=== PATIENT | male | born 2005 | race African-American/Black ===

== ENCOUNTER 2024-02-17 14:20 | Observation (INO) ==
[2024-02-17 15:46] LABS: Basophils # (auto) 0.06 K/uL (0.00-0.20); Basophils % (auto) 0.3 %; Hematocrit (blood only) 43.4 % (42.0-52.0); Hemoglobin 14.8 g/dl (14.0-18.0); Immature Granulocytes # (auto) 0.24 K/uL (0.01-0.20); Immature Granulocytes % (auto) 1.1 %; Lymphocytes % (auto) 7.2 %; Mean Corpuscular Hemoglobin 29.6 pg (25.0-34.0); Mean Corpuscular Hgb Conc 34.1 g/dL (32.0-36.0); Mean Corpuscular Volume 86.8 fL (80.0-100.0); Mean Platelet Volume 11.9 fL (9.4-12.4); Monocytes # (auto) 2.02 K/uL (0.11-0.59); Monocytes % (auto) 9.1 %; Neutrophils # (auto) 18.33 K/uL (1.40-6.50); Neutrophils % (auto) 82.3 %; Platelet Count 264 K/uL (130-400); RDW Coefficient of Variation 12.1 % (11.5-14.5); RDW Standard Deviation 38.7 fL (36.4-46.3); White Blood Count 22.25 K/ul (4.8-10.8)
[2024-02-17 16:01] LABS: Albumin Globulin Ratio 0.8 (0.9-2); BUN Creatinine Ratio 12.6 (10-20); Bilirubin,Total 0.7 mg/dl (0.2-1.0); Calcium 9.9 mg/dl (8.6-10.3); Creatinine Clr Calc Pharmacy 118.1 ml/min; Globulin 5.3 gm/dl (2.5-4.0); Potassium 4.4 mmol/L (3.5-5.1); Total Protein 9.3 gm/dl (6.0-8.3)
--- NOTE | 2024-02-17 16:22 | XRay Report ---
XR chest 1V not portable CLINICAL HISTORY: Chest congestion. COMPARISON STUDY: No previous studies for comparison. FINDINGS: Lung volumes are normal. Lungs are clear. There is no pneumothorax or pleural effusion. Car diac size is normal. Mediastinal contours are normal. There is no evidence for pulmonary edema. IMPRESSION: No acute cardiopulmonary findings. ACT 112: Negative or not required by law. Electronically signed by: Andrew Palma M.D. 02/17/2024 4:21 PM
[2024-02-17 16:24] LABS: Influenza A virus by PCR Negative (Neg); Influenza B virus by PCR Negative (Neg); RSV by PCR Negative (Neg); SARS CoV2 RNA(COVID-19) Ceph NEGATIVE (Negative)
[2024-02-17] MEDS: IBUPROFEN 600 MG TAB PO STA (16:47)
[2024-02-17] MEDS: OPTIRAY 320 100ml IV ONE (18:56)
--- NOTE | 2024-02-17 19:29 | CT Scan Report ---
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 TECHNIQUE: Axial computed tomography images of the neck with intravenous contrast. CTDI is 17.84 mGy and DLP is 402.99 mGy-cm. Automated exposure control was utilized for the study. A dose lowering technique was utilized adhering to the principles of ALARA. CONTRAST: Patient received 91 ml optiray 320 of IV contrast COMPARISON: No relevant prior studies available. FINDINGS: Nasopharynx: Enlarged adenoids. Oropharynx: Enlarged palatine tonsils consistent with tonsillitis. Left peritonsillar abscess measuring 2.4 x 4.0 x 5.3 cm. Hypopharynx: Unremarkable. Larynx: Unremarkable. Normal epiglottis. Trachea: Unremarkable. Retropharyngeal space: Unremarkable. Submandibular/parotid glands: Unremarkable. Glands are normal in size. Thyroid: Unremarkable. No enlarged or calcified nodules. Bones/joints: No acute fracture. Soft tissues: Unremarkable. Vasculature: No acute findings. Lymph nodes: Bilateral cervical chain lymphadenopathy, left greater than right. Lung apices: Unremarkable as visualized. IMPRESSION: 1. Left peritonsillar abscess measuring 2.4 x 4.0 x 5.3 cm. Background tonsillitis. 2. Enlarged adenoids. 3. Bilateral cervical chain lymphadenopathy, left greater than right. Electronically signed by: Ari Montejo M.D. 02/17/24 19:28 PM
[2024-02-17] MEDS: DEXAMETHASONE SOD INJ 4 MG/ML VIAL IV STA (21:36)
--- NOTE | 2024-02-17 21:53 | History & Physical Report ---
Date of Service February 17, 2024 Assessment & Plan (1) Peritonsillar abscess: Plan: 19 y/o male with no PMH here with peritonsillar abscess Admit to Med- Surg Leukocytosis (22.25) Soft tissue neck CT: Left peritonsillar abscess measuring 2.4x 4.0 x 5.3 cm ENT consulted, aprec recommendations: abscess was drained by Dr. Ureña today. - Continue IV Unasyn - IV Decadron 8mg - Culture sent - NPO CBC AM Plan FEN: NPO Code status: full code DVT ppx: low risk, SCDs, ambulation Dispo: med/surg History of Present Illness Primary Care Provider: [facility] Patient is a 19 y/o male with no known PMH here due to peritonsillar abscess. Patient states symptoms started 2 weeks ago with sore sore throat. He was seen in [facility] where he was diagnosed with mono. He completely a short course of steroids. Patient refers symptoms returned after a couple of days with worsening symptoms, sore throat and chills. Abscess was drained by Dr. Ureña in the emergency room. Pain had improved after drained and PO Ibuprofen, refers mild pain now. Denied any chest pain, SOB, palpitations, abdominal pain, nausea, vomiting or any other symptoms Allergies Allergy/AdvReac Type Severity Reaction Status Date / Time No Known Allergies Allergy Verified 02/17/24 21:35 Home Medications Medication Instructions Recorded Confirmed Type No Known Home Medications 02/17/24 02/17/24 History Past Med/Surg History Problem List (Updated 02/17/24 @ 22:46 by Sarkis Wilson MD) Peritonsillar abscess (Acute) Medical History No pertinent past medical history No pertinent family history Surgical History No pertinent past surgical history Social History Smoking Status: Never smoker Second Hand Exposure: No; Hx Alcohol Use: No Hx Substance Use: No Preferred Language: Pashto Communication Ability: Effective 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 Required: No Beliefs That Will Affect Care: None Current Living Situation: Other Current Living Situation Comment: 2 roomates Other Information That Helps Us Care for You: No Feels Safe at Home: Yes Safety Concerns: Feels Safe At This Time Assistive Devices: None Review of Systems Review of Systems: as per HPI Physical Exam Constitutional: WD/WN, vitals as above ENMT: Throat: + peritonsillar mass Respiratory: normal respiratory effort, lungs clear to auscultation Cardiovascular: RRR, no murmur, no edema Gastrointestinal (Abdomen): normal bowel sounds, soft, nontender, no he patosplenomegaly Results & Data Results & Data Vital Signs (Past 12 Hours) Vital Signs Temp Pulse Resp BP BP Pulse Ox O2 Del Method 02/17/24 20:34 83 02/17/24 20:00 68 20 98 02/17/24 20:00 107/62 02/17/24 20:00 107/62 02/17/24 20:00 107/62 02/17/24 20:00 107/62 02/17/24 18:34 84 02/17/24 18:18 36.8 C 12 120/78 96 Room Air 02/17/24 14:55 38.3 C H 80 18 136/101 H 98 Room Air Code Status & VTE Plan VTE Prophylaxis Plan VTE Prophylaxis will be ordered: Yes Supervising Physician Co-Signing Physician Notes Attending addendum: I have physically seen this patient, have supervised the medical residents activities, and agree with the H&P unless as otherwise noted. Assessment and Plan: Left peritonsillar abscess/associated tonsillitis- NPO CT soft tissue of the neck revealed a left peritonsillar abscess measuring 2.4 x 4.0 x 5.3 cm Patient was seen by ENT Dr. Ureña in the ED, who performed an I&D, with cultures sent Follow culture and sensitivity Empiric Unasyn 3 g IV every 6 hours IV Decadron 8 mg daily NSS at 125 mL/h x 1 L Follow serial CBC with differential Resident Activity Tracking Resident Involvement: Resident Care Provided Care Provided: Adult Hospital Medicine
[2024-02-17] MEDS: AMPICILLIN/SULBACTAM SOD 3,000 MG/100 ML BAG IV SCH (21:58)
--- NOTE | 2024-02-17 22:46 | Emergency Department Note ---
History of Present Illness General Chief Complaint: Illness Stated Complaint: MONO SYMPTOMS Time Seen by Provider: 02/17/24 17:38 History of Present Illness Provider Complaint: + sore throat Onset (ago): 3 day(s) Duration: + constant Maximum Pain Intensity: 7 Able to tolerate fluids by mouth: Yes Associated symptoms: + fever, + cough, + nausea and + vomiting HPI Narrative: Patient reports he was diagnosed with mono at [facility] 2 days ago. Home Medications Medication Instructions Recorded Confirmed Type No Known Home Medications 02/17/24 02/17/24 History Allergies Allergy/AdvReac Type Severity Reaction Status Date / Time No Known Allergies Allergy Verified 02/17/24 21:35 Past Med/Surg History Problem List (Updated 02/17/24 @ 22:46 by Sarkis Wilson MD) Peritonsillar abscess (Acute) Medical History No pertinent past medical history No pertinent family history Surgical History No pertinent past surgical history Social History Smoking Status: Never smoker Preferred Language: Taiwanese Feels Safe at Home: Yes Physical Exam 2 Vital Signs: Vital Signs - 24 hr 02/17/24 14:55 02/17/24 18:18 02/17/24 18:34 Temperature 38.3 C H 36.8 C Temperature Source Oral Temporal Artery Sc an Pulse Rate 80 84 Pulse Rate from Sp O2 Sensor Pulse Rhythm Regular Pulse Strength Normal Respiratory Rate 18 12 Respiratory Effort / Characteristics Non-Labored Sponta neous Respiratory Depth Normal Respiratory Patter n Regular Blood Pressure 136/101 H Blood Pressure [Ri ght Arm] 120/78 Blood Pressure Ana n 112 Blood Pressure Ana n [Right Arm] 92 Blood Pressure Pos ition Sitting Pulse Oximetry 98 96 Oxygen Delivery Me thod Room Air Room Air Sepsis Recent Feve r Within 48 Hours No Sepsis New/Unexpla ined Change in Men david Status N/A Sepsis Action Take n by Nursing No Action Required 02/17/24 20:00 02/17/24 20:00 02/17/24 20:00 Temperature Temperature Source Pulse Rate Pulse Rate from Sp O2 Sensor Pulse Rhythm Pulse Strength Respiratory Rate Respiratory Effort / Characteristics Respiratory Depth Respiratory Patter n Blood Pressure 107/62 107/62 107/62 Blood Pressure [Ri ght Arm] Blood Pressure Ana n 76 76 76 Blood Pressure Ana n [Right Arm] Blood Pressure Pos ition Pulse Oximetry Oxygen Delivery Me thod Sepsis Recent Feve r Within 48 Hours Sepsis New/Unexpla ined Change in Men david Status Sepsis Action Take n by Nursing 02/17/24 20:00 02/17/24 20:00 02/17/24 20:34 Temperature Temperature Source Pulse Rate 68 83 Pulse Rate from Sp O2 Sensor 71 Pulse Rhythm Pulse Strength Respiratory Rate 20 Respiratory Effort / Characteristics Respiratory Depth Respiratory Patter n Blood Pressure 107/62 Blood Pressure [Ri ght Arm] Blood Pressure Ana n 76 Blood Pressure Ana n [Right Arm] Blood Pressure Pos ition Pulse Oximetry 98 Oxygen Delivery Me thod Sepsis Recent Feve r Within 48 Hours Sepsis New/Unexpla ined Change in Men david Status Sepsis Action Take n by Nursing 02/17/24 20:57 02/17/24 21:01 02/17/24 21:12 Temperature Temperature Source Pulse Rate 72 80 Pulse Rate from Sp O2 Sensor 74 83 Pulse Rhythm Pulse Strength Respiratory Rate 19 17 Respiratory Effort / Characteristics Respiratory Depth Respiratory Patter n Blood Pressure 111/75 Blood Pressure [Ri ght Arm] Blood Pressure Ana n 87 Blood Pressure Ana n [Right Arm] Blood Pressure Pos ition Pulse Oximetry 98 97 Oxygen Delivery Me thod Sepsis Recent Feve r Within 48 Hours Sepsis New/Unexpla ined Change in Men david Status Sepsis Action Take n by Nursing 02/17/24 21:51 Temperature Temperature Source Pulse Rate 79 Pulse Rate from Sp O2 Sensor 83 Pulse Rhythm Pulse Strength Respiratory Rate 21 Respiratory Effort / Characteristics Respiratory Depth Respiratory Patter n Blood Pressure Blood Pressure [Ri ght Arm] Blood Pressure Ana n Blood Pressure Ana n [Right Arm] Blood Pressure Pos ition Pulse Oximetry 96 Oxygen Delivery Me thod Sepsis Recent Feve r Within 48 Hours Sepsis New/Unexpla ined Change in Men david Status Sepsis Action Take n by Nursing Physical Exam: Physical Exam GENERAL: He is oriented to person, place, and time. He appears well-developed and well-nourished. He does not appear distressed. HENT: Exam performed. - Head: Normocephalic and atraumatic. - Right Ear: External ear normal. No mastoid erythema - Left Ear: External ear normal. No mastoid erythema - Mouth/Throat: Mild trismus. Moist mucous membranes. 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 There are some scant exudate over this area. Uvula pushed slightly to the right. EYES: Conjunctivae and EOM are normal. Pupils are equal, round, and reactive to light. Right eye exhibits no discharge. Left eye exhibits no discharge. No scleral icterus. NECK: Normal range of motion. Neck supple. No JVD present. CV: Normal rate, regular rhythm, normal heart sounds and intact distal pulses. There is no peripheral edema. Palpable radial pulses bue. PULM/CHEST: Effort normal and breath sounds normal. No respiratory distress. No stridor. He has no wheezes. He has no rales. LYMPH: Bilateral cervical adenopathy. NEURO: He is alert and oriented to person, place, and time. He has normal strength. No cranial nerve deficit or sensory deficit. Coordination and gait normal. GCS eye subscore is 4. GCS verbal subscore is 5. GCS motor subscore is 6. Cerebellar tests wnl. SKIN: Skin is warm and dry. He is not diaphoretic. PSYCH: He has a normal mood and affect. Behavior is normal. Judgment and thought content normal. Course Course 173: The patient was evaluated in room C SUBWAIT. A complete history and physical exam was performed Patient was seen during a time of extreme volume and extreme acuity in the emergency department. Nursing triage protocols were initiated and labs were drawn by protocol in the triage area. Patient does have white blood cell count of 22. Patient's physical exam is concerning for TOOL CRIB SUPERVISOR versus tonsillitis. Will obtain CT of the soft tissue neck. 2002: Patient does have a large TOOL CRIB SUPERVISOR on the left. Discussed with ENT Dr. Ureña who states he will be in to evaluate the patient. 2100: Vital signs stable. Dr. Ureña evaluated the patient at bedside and did a bedside I&D. He recommends IV Unasyn and admission to medicine. Decadron also ordered for the patient. Patient will be admitted to the hospital service. Administered Medications Ampicillin Sodium/Sulbactam Sodium (Unasyn) 3,000 mg in 100 mls @ 200 mls/hr IV Q6H YESSI Stop: 02/27/24 21:14 Last Infusion: 02/17/24 22:35 Dose: Infused Documented By: Admin: 02/17/24 21:58 Dose: 200 mls/hr Documented By: CLAUDIA Discontinued Medications Dexamethasone (Dexamethasone Sod Inj 4 Mg/Ml Vial) 8 mg IV NOW STA Stop: 02/17/24 21:05 Last Admin: 02/17/24 21:36 Dose: 8 mg Documented By: CLAUDIA Ibuprofen (Ibuprofen 600 Mg Tab) 600 mg PO NOW STA Stop: 02/17/24 15:03 Last Admin: 02/17/24 16:47 Dose: 600 mg Documented By: JOSEPH Ioversol (Optiray 320 100ml) 91 ml IV ONCE ONE Stop: 02/17/24 18:57 Last Admin: 02/17/24 18:56 Dose: 91 ml Documented By: NOEL Medical Decision Making Laboratory Data Attestation: I reviewed the patient's lab results. 02/17/24 15:25 02/17/24 15:25 Lab Results 02/17/24 02/17/24 02/17/24 Range/Units 15:25 18:01 18:30 WBC 22.25 H (4.8-10.8) K/ul RBC 5.00 (4.70-6.10) M/uL Hgb 14.8 (14.0-18.0) g/dl Hct 43.4 (42.0-52.0) % MCV 86.8 (80.0-100.0) fL MCH 29.6 (25.0-34.0) pg MCHC 34.1 (32.0-36.0) g/dL RDW Std Deviation 38.7 (36.4-46.3) fL RDW Coeff of Diana 12.1 (11.5-14.5) % Plt Count 264 (130-400) K/uL MPV 11.9 (9.4-12.4) fL Immature Gran % (Auto) 1.1 % Neut % (Auto) 82.3 % Lymph % (Auto) 7.2 % Angelina % (Auto) 9.1 % Eos % (Auto) 0.0 % Baso % (Auto) 0.3 % Neut # (Auto) 18.33 H (1.40-6.50) K/uL Lymph # (Auto) 1.60 (1.20-3.40) K/uL Angelina # (Auto) 2.02 H (0.11-0.59) K/uL Eos # (Auto) 0.00 (0.00-0.50) K/uL Baso # (Auto) 0.06 (0.00-0.20) K/uL Immature Gran # (Auto) 0.24 H (0.01-0.20) K/uL Sodium 134 L (136-145) mmol/L Potassium 4.4 (3.5-5.1) mmol/L Chloride 98 (98-107) mmol/L Carbon Dioxide 29 (21-32) mmol/L Anion Gap 7 (3-11) BUN 13 (6-23) mg/dl Creatinine 1.03 (0.6-1.4) mg/dl Est Cr Clr Drug Dosing 118.1 ml/min eGFR 106.65 BUN/Creatinine Ratio 12.6 (10-20) Glucose 129 H (70-99(Fasting)) mg/dl Calcium 9.9 (8.6-10.3) mg/dl Total Bilirubin 0.7 (0.2-1.0) mg/dl AST 21 (13-39) U/L ALT 19 (7-52) U/L Alkaline Phosphatase 109 H (34-104) U/L Total Protein 9.3 H (6.0-8.3) gm/dl Albumin 4.0 (3.4-5.0) gm/dl Globulin 5.3 H (2.5-4.0) gm/dl Albumin/Globulin Ratio 0.8 L (0.9-2) SARS-CoV-2 (PCR) NEGATIVE (Negative) Monoscreen Negative (Negative) Influenza Type A (PCR) Negative (Neg) Influenza Type B (PCR) Negative (Neg) RSV (RT-PCR) Negative (Neg) Group A Strep (PCR) NOT DETECTED (NotDetected) Imaging Data Attestation: I personally reviewed and interpreted this imaging study as follows: My Impression: Chest x-ray negative. Airway clear. No pneumothorax. No consolidation. No cardiomegaly or cephalization.. No free air under the diaphragm. No fractures of the skeletal structures. Radiologist's Impression: Chest X-Ray 02/17/24 15:01 XR chest 1V not portable CLINICAL HISTORY: Chest congestion. COMPARISON STUDY: No previous studies for comparison. FINDINGS: Lung volumes are normal. Lungs are clear. There is no pneumothorax or pleural effusion. Cardiac size is normal. Mediastinal contours are normal. There is no evidence for pulmonary edema. IMPRESSION: No acute cardiopulmonary findings. ACT 112: Negative or not required by law. Electronically signed by: Andrew Palma M.D. 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 TECHNIQUE: Axial computed tomography images of the neck with intravenous contrast. CTDI is 17.84 mGy and DLP is 402.99 mGy-cm. Automated exposure control was utilized for the study. A dose lowering technique was utilized adhering to the principles of ALARA. CONTRAST: Patient received 91 ml optiray 320 of IV contrast COMPARISON: No relevant prior studies available. FINDINGS: Nasopharynx: Enlarged adenoids. Oropharynx: Enlarged palatine tonsils consistent with tonsillitis. Left peritonsillar abscess measuring 2.4 x 4.0 x 5.3 cm. Hypopharynx: Unremarkable. Larynx: Unremarkable. Normal epiglottis. Trachea: Unremarkable. Retropharyngeal space: Unremarkable. Submandibular/parotid glands: Unremarkable. Glands are normal in size. Thyroid: Unremarkable. No enlarged or calcified nodules. Bones/joints: No acute fracture. Soft tissues: Unremarkable. Vasculature: No acute findings. Lymph nodes: Bilateral cervical chain lymphadenopathy, left greater than right. Lung apices: Unremarkable as visualized. IMPRESSION: 1. Left peritonsillar abscess measuring 2.4 x 4.0 x 5.3 cm. Background tonsillitis. 2. Enlarged adenoids. 3. Bilateral cervical chain lymphadenopathy, left greater than right. Electronically signed by: Ari Montejo M.D. 02/17/24 19:[address] [facility] Narrative 1738: The patient was evaluated in room C SUBWAIT. A complete history and physical exam was performed Patient was seen during a time of extreme volume and extreme acuity in the emergency department. Nursing triage protocols were initiated and labs were drawn by protocol in the triage area. Patient does have white blood cell count of 22. Patient's physical exam is concerning for TOOL CRIB SUPERVISOR versus tonsillitis. Will obtain CT of the soft tissue neck. 2002: Patient does have a large TOOL CRIB SUPERVISOR on the left. Discussed with ENT Dr. Ureña who states he will be in to evaluate the patient. 2100: Vital signs stable. Dr. Ureña evaluated the patient at bedside and did a bedside I&D. He recommends IV Unasyn and admission to medicine. Decadron also ordered for the patient. Patient will be admitted to the hospital service. Impression & Plan Peritonsillar abscess Discharge Plan Visit Data Chief Complaint: Illness Stated Complaint: MONO SYMPTOMS ED Provider: Sarkis Wilson Discharge Problem: Peritonsillar abscess Patient Disposition: Admitted As Inpatient
[2024-02-17] MEDS ORDERED: ACETAMINOPHEN 1,000 MG/100 ML VIAL IV PRN (23:38)
[2024-02-17] MEDS ORDERED: ONDANSETRON INJ 2 MG/ML 2 ML VIAL IV PRN (23:38)
--- NOTE | 2024-02-18 04:16 | Billing Data ---
Date of Service February 18, 2024 Coding Level of Care Code 29478 INT INP/OBS CARE
[2024-02-18] MEDS: SODIUM CHLORIDE 0.9% 500 ML IV SCH (05:38)
[2024-02-18 08:17] VITALS: BP 112/70; PULSE 73; RESP 15; TEMP 99; O2SAT 96
[2024-02-18 08:54] LABS: Albumin Globulin Ratio 0.7 (0.9-2); Albumin Level 3.5 gm/dl (3.4-5.0); BUN Creatinine Ratio 21.2 (10-20); Bilirubin,Total 0.5 mg/dl (0.2-1.0); Calcium 9.2 mg/dl (8.6-10.3); Creatinine Clr Calc Pharmacy 129.6 ml/min; Globulin 5.1 gm/dl (2.5-4.0); Potassium 4.5 mmol/L (3.5-5.1); Total Protein 8.6 gm/dl (6.0-8.3)
[2024-02-18 10:03] LABS: Basophils # (auto) 0.04 K/uL (0.00-0.20); Basophils % (auto) 0.2 %; Eosinophils # (auto) 0.02 K/uL (0.00-0.50); Eosinophils % (auto) 0.1 %; Hemoglobin 14.1 g/dl (14.0-18.0); Immature Granulocytes # (auto) 0.47 K/uL (0.01-0.20); Immature Granulocytes % (auto) 2.5 %; Lymphocytes # (auto) 1.37 K/uL (1.20-3.40); Lymphocytes % (auto) 7.2 %; Mean Corpuscular Hemoglobin 29.5 pg (25.0-34.0); Mean Corpuscular Hgb Conc 33.6 g/dL (32.0-36.0); Mean Corpuscular Volume 87.9 fL (80.0-100.0); Mean Platelet Volume 12.4 fL (9.4-12.4); Monocytes # (auto) 1.49 K/uL (0.11-0.59); Monocytes % (auto) 7.8 %; Neutrophils # (auto) 15.75 K/uL (1.40-6.50); Neutrophils % (auto) 82.2 %; Platelet Count 267 K/uL (130-400); RDW Coefficient of Variation 12.2 % (11.5-14.5); RDW Standard Deviation 39.5 fL (36.4-46.3); Red Blood Count 4.78 M/uL (4.70-6.10); White Blood Count 19.14 K/ul (4.8-10.8)
[2024-02-18] MEDS: INFLUENZA VACC TS2024-25(6m+)/PF (IIV3) 0.5mL Syr IM ONE (14:09)
--- NOTE | 2024-02-18 15:38 | Discharge Summary ---
Discharge Summary Date of Service February 18, 2024 Principal Dx & Hospital Course #1 = Principal Diagnosis (1) Peritonsillar abscess: 19 y/o male with no PMH here with peritonsillar abscess Leukocytosis improving Soft tissue neck CT: Left peritonsillar abscess measuring 2.4x 4.0 x 5.3 cm ENT consulted, aprec recommendations: abscess was drained by Dr. rUeña 02/16 Recieved IV Unasyn. Tolerating full liquid diet. Discharged with course of Augmentin and Steroids. Throat culture pending. Strep test negative. Plan Dispo: discharge to home today Admission HPI Per Admitting Provider Patient is a 19 y/o male with no known PMH here due to peritonsillar abscess. Patient states symptoms started 2 weeks ago with sore sore throat. He was seen in [facility] where he was diagnosed with mono. He completely a short course of steroids. Patient refers symptoms returned after a couple of days with worsening symptoms, sore throat and chills. Abscess was drained by Dr. Ureña in the emergency room. Pain had improved after drained and PO Ibuprofen, refers mild pain now. Denied any chest pain, SOB, palpitations, abdominal pain, nausea, vomiting or any other symptoms Discharge Exam General: NAD, VS as above HEENT: enlarged 2/3+ left tonsil, mild erythema. able to talk normally and handle his secretions. Resp: normal respiratory effort, lungs clear to auscultation CV: RRR, no murmur, Extremities: Moves all extremities, no edema Neuro: A&O x3, Skin: intact, no lesions noted Discharge Plan Discharge Items Patient Disposition: Home - Self-Care Reason For Visit: PERITONSILLAR ABSCESS Discharge Diagnosis: Peritonsillar abscess Activity: As commented below Activity Comment: take it easy, no strenuous activity Weightbearing: Full weightbearing Non-emergency contact: Primary Care Provider Call non-emergency contact if: you have any medication questions, your symptoms worsen and your temperature is above 101 Follow-up/Referrals: [facility] [Primary Care Provider] - (Please call to make a f ollow up appointment next week ) Jasper Ureña MD [Physician] - () Diet: Regular Addtl Attending Provider Instructions: Mr. Svitlana Maldonado were hospitalized after having worsening peritonsillar abscess after recent diagnosis of Payne. This abscess was drained in the ER but Dr. Ureña. It is important you call [facility] to have an appointment next week to have this followed up on. If you are going back home, make sure you are seen by your PCP back home next week. You have been discharged on oral antibiotics and a steroid taper. Please follow the instructions on steroid pack. Avoid abrasive foods (pretzels, chips) while your throat continues to heal. Avoid strenuous activity while you are recovering from Payne. I have attached the information for the ENT (Dr. Ureña) in case you were to need anything from him. CONTACT YOUR PRIMARY CARE PROVIDER if you experience any of the following: Shortness of breath or difficulty breathing Fevers or chills Feeling tired with normal activity or experiencing dizziness or fainting Difficulty following your treatment plan, or difficulty taking medications CALL 911 OR GO TO THE EMERGENCY DEPARTMENT if you experience any of the following: Severe abdominal pain or nausea/vomiting Severe chest pain, or chest pain that radiates (moves) to your jaw or arm Sudden, severe shortness of breath or difficulty breathing Thank you for allowing us to participate in your care. Cesilia Monge PA-C Pending Studies at Discharge: Yes (throat culture ) Stand-Alone Forms: My [facility], Smoking Cessation Medications and DC Order Prescriptions: New amoxicillin-pot clavulanate 875-125 mg tablet 1 tab PO BID Qty: 14 0RF methylprednisolone [Medrol (Saji)] 4 mg tablets,dose pack 4 mg PO DAILY Qty: 21 0RF Rx Instructions: follow directions on package insert Discharge Orders: Discharge Order (Routine); Ordered 02/18/24 Ordered By: Cesilia Quiroz/Other Patient Handouts: ED Mononucleosis, ED Peritonsillar Abscess Admission Data Admit Date/Time: 02/17/24 21:52 Attending Provider: Chavo Hernández Admit Provider: Miguel Hatfield Primary Care Provider: [facility] Other Providers: Jasper Ureña; Justo Hoffmann Hospital Stay Data Consultations 02/17/24 21:05 ED Decision to Admit Stat 02/17/24 22:09 Consult Otolaryngology (Head and Neck) Routine Diagnostic Imagining Performed Chest X-Ray 02/17/24 15:01 XR chest 1V not portable CLINICAL HISTORY: Chest congestion. COMPARISON STUDY: No previous studies for comparison. FINDINGS: Lung volumes are normal. Lungs are clear. There is no pneumothorax or pleural effusion. Cardiac size is normal. Mediastinal contours are normal. There is no evidence for pulmonary edema. IMPRESSION: No acute cardiopulmonary findings. ACT 112: Negative or not required by law. Electronically signed by: Andrew Palma M.D. 02/17/2024 4:21 PM Soft Tissue Neck CT 02/17/24 17:59 Exam(s): CT NECK With Contrast IV Amt: 91 ml optiray 320 EXAM: CT Neck With Intravenous Contrast CLINICAL HISTORY: Reason for exam: ro [employer]. TECHNIQUE: Axial computed tomography images of the neck with intravenous contrast. CTDI is 17.84 mGy and DLP is 402.99 mGy-cm. Automated exposure control was utilized for the study. A dose lowering technique was utilized adhering to the principles of ALARA. CONTRAST: Patient received 91 ml optiray 320 of IV contrast COMPARISON: No relevant prior studies available. FINDINGS: Nasopharynx: Enlarged adenoids. Oropharynx: Enlarged palatine tonsils consistent with tonsillitis. Left peritonsillar abscess measuring 2.4 x 4.0 x 5.3 cm. Hypopharynx: Unremarkable. Larynx: Unremarkable. Normal epiglottis. Trachea: Unremarkable. Retropharyngeal space: Unremarkable. Submandibular/parotid glands: Unremarkable. Glands are normal in size. Thyroid: Unremarkable. No enlarged or calcified nodules. Bones/joints: No acute fracture. Soft tissues: Unremarkable. Vasculature: No acute findings. Lymph nodes: Bilateral cervical chain lymphadenopathy, left greater than right. Lung apices: Unremarkable as visualized. IMPRESSION: 1. Left peritonsillar abscess measuring 2.4 x 4.0 x 5.3 cm. Background tonsillitis. 2. Enlarged adenoids. 3. Bilateral cervical chain lymphadenopathy, left greater than right. Electronically signed by: Ari Montejo M.D. 02/17/24 19:28 PM Pending Results Patient Have Any Pending Studies at Discharge: Yes (throat culture ) Discharge Instructions Given to Patient (Per Discharging Provider) Mr. Svitlana Maldonado were hospitalized after having worsening peritonsillar abscess after recent diagnosis of Payne. This abscess was drained in the ER but Dr. Ureña. It is important you call [facility] to have an appointment next week to have this followed up on. If you are going back home, make sure you are seen by your PCP back home next week. You have been discharged on oral antibiotics and a steroid taper. Please follow the instructions on steroid pack. Avoid abrasive foods (pretzels, chips) while your throat continues to heal. Avoid strenuous activity while you are recovering from Payne. I have attached the information for the ENT (Dr. Ureña) in case you were to need anything from him. CONTACT YOUR PRIMARY CARE PROVIDER if you experience any of the following: Shortness of breath or difficulty breathing Fevers or chills Feeling tired with normal activity or experiencing dizziness or fainting Difficulty following your treatment plan, or difficulty taking medications CALL 911 OR GO TO THE EMERGENCY DEPARTMENT if you experience any of the followi ng: Severe abdominal pain or nausea/vomiting Severe chest pain, or chest pain that radiates (moves) to your jaw or arm Sudden, severe shortness of breath or difficulty breathing Thank you for allowing us to participate in your care. Cesilia Monge PA-C Total Time Total Time Spent Total Time Spent (In Minutes): Time spent day of discharge 36 minutes including direct patient care, medication reconciliation, documentation, review of labs and images, and coordination of care. Coding Level of Care Code 85257 INP/OBS DISCH >30 MIN Diagnoses Peritonsillar abscess J36
--- NOTE | 2024-02-18 16:53 | ENT Consultation ---
Date of Consultation February 18, 2024 Assessment & Plan (1) Peritonsillar abscess: History of Present Illness Attending Physician: Chavo Hernández MD History of Present Illness Patient is a 19-year-old male who presents with a history of sore throat which been going over the last 10 days. Is been increasing. He presents with difficulty swallowing but no airway difficulties. He has not had this problem in the past. He has not had problems with recurrent sore throats before either. CT scan shows a 4 cm peritonsillar abscess on the left side. Allergies Allergy/AdvReac Type Severity Reaction Status Date / Time No Known Allergies Allergy Verified 02/17/24 21:35 Home Medications Medication Instructions Recorded Confirmed Type amoxicillin 875 mg-potassium 1 tab PO BID #14 tabs 02/18/24 Rx clavulanate 125 mg tablet methylprednisolone 4 mg tablets in 4 mg PO DAILY #21 ea 02/18/24 Rx a dose pack (Medrol (Saji)) Patient History Medical History No pertinent past medical history No pertinent family history Surgical History No pertinent past surgical history Social History Smoking Status: Never smoker Second Hand Exposure: No; Hx Alcohol Use: No Hx Substance Use: No Preferred Language: Kiswahili Communication Ability: Effective Mediator Required: No Beliefs That Will Affect Care: None Current Living Situation: Other Current Living Situation Comment: 2 roomates Feels Safe at Home: Yes Assistive Devices: None Physical Exam Physical Exam: On examination shows a peritonsillar swelling on that left side. I infiltrated the area with lidocaine with Afrin. I did a needle aspiration and got out 5 cc of mucopus. I then made an incision in and opened the area at. Large amount of pus was suctioned out from the peritonsillar area. Patient tolerated procedure well and felt better after the procedure. Results & Data Vital Signs (Past 12 Hours) Vital Signs Temp Pulse Resp BP Pulse Ox O2 Del Method 02/18/24 09:13 Room Air 02/18/24 08:16 37.2 C 73 15 112/70 96 Room Air PG Care Time/CCT Total # of Minutes Spent Total Time Spent with Patient: Total time spent is greater than 50% in coordination of care (as documented) at patient's floor/unit and/or counseling patient: [place] [address] IN/OBS CONSULT LVL 3,45M Patient Type New History Expanded Problem Focused Exam Expanded Problem Focused Medical Decision Making Moderate Complexity Diagnoses Peritonsillar abscess J36 CPT Codes Drainage of Tonsil Abscess - 52646 ([id number])
== END 2024-02-18 16:10 | disposition home or self-care (01) ==
LOC: ED 14:20 → EDINP 14:20 → SUATTDRO 21:52 → 3N 22:49
DX: J36 Peritonsillar abscess